=== PATIENT | female | born 1960 ===

== ENCOUNTER 2019-08-21 10:47 | Outpatient (CLI) | payer OTHER ==
[2019-08-21 11:28] LABS: CALCIUM 8.1 mg/dL (8.5-10.3); MAGNESIUM 1.9 mg/dL (1.7-2.8)
== END 2019-08-21 10:48 | disposition home or self-care (01) ==
LOC: LAB 10:47
PROVIDERS: ATTEND Internal Medicine Endocrinology, Diabetes & Metabolism
DX: E89.2 Postprocedural hypoparathyroidism (principal)
CPT/HCPCS: 36415; 82310; 83735

== ENCOUNTER 2019-09-09 13:12 | Outpatient (CLI) | payer OTHER ==
[2019-09-09 13:36] LABS: CALCIUM 8.4 mg/dL (8.5-10.3); MAGNESIUM 1.8 mg/dL (1.7-2.8)
== END 2019-09-09 13:13 | disposition home or self-care (01) ==
LOC: LAB 13:12
PROVIDERS: ATTEND Internal Medicine Endocrinology, Diabetes & Metabolism
DX: E89.2 Postprocedural hypoparathyroidism (principal)
CPT/HCPCS: 36415; 82310; 83735

== ENCOUNTER 2019-10-06 13:28 | Outpatient (CLI) | payer OTHER ==
[2019-10-06 14:04] LABS: CALCIUM 8.8 mg/dL (8.5-10.3); MAGNESIUM 1.7 mg/dL (1.7-2.8)
== END 2019-10-06 13:29 | disposition home or self-care (01) ==
LOC: LAB 13:28
PROVIDERS: ATTEND Internal Medicine Endocrinology, Diabetes & Metabolism
DX: E89.2 Postprocedural hypoparathyroidism (principal)
CPT/HCPCS: 36415; 82310; 83735

== ENCOUNTER 2020-09-07 09:15 | Outpatient (CLI) | payer OTHER ==
[2020-09-07 10:04] LABS: ALBUMIN 4.4 g/dL (3.2-5.5); ALBUMIN/GLOBULIN RATIO 1.6 (1.0-2.2); BILIRUBIN,TOTAL 0.8 mg/dL (0.2-1.0); CALCIUM 7.7 mg/dL (8.5-10.3); CREATININE 0.9 mg/dL (0.4-1.0); MAGNESIUM 1.7 mg/dL (1.7-2.8); TOTAL PROTEIN 7.2 g/dL (6.7-8.2)
[2020-09-07 10:21] LABS: THYROID STIMULATING HORMONE < 0.08 uIU/mL (0.34-5.60)
[2020-09-07 10:24] LABS: FREE T4 (FREE THYROXINE) 1.82 ng/dL (0.58-1.64)
== END 2020-09-07 09:16 | disposition home or self-care (01) ==
LOC: LAB 09:15
PROVIDERS: ATTEND Internal Medicine Endocrinology, Diabetes & Metabolism
DX: C73 Malignant neoplasm of thyroid gland (principal); E89.0 Postprocedural hypothyroidism; E89.2 Postprocedural hypoparathyroidism
CPT/HCPCS: 36415; 80048; 80053; 82306; 83735; 84432; 84439; 84443; 86800

== ENCOUNTER 2020-09-20 17:00 | Emergency (ER) | payer OTHER ==
[2020-09-20] MEDS ORDERED: AMOX/CLAV 875 MG/125 MG TABLET PO STA (17:08)
[2020-09-20] MEDS ORDERED: BACITRACIN ZINC OINT 1 PACKET TOP STA (17:08)
--- NOTE | 2020-09-20 17:10 | ED Physician Documentation ---
PD HPI UPPER EXT INJURY - Stated complaint Stated Complaint: DOG BITE - History obtained from History obtained from: Patient (Several bites from a dog just prior to arrival. Both hands are affected. She is up-to-date on tetanus.) Review of Systems Constitutional: reports: Reviewed and negative Cardiac: reports: Reviewed and negative Respiratory: reports: Reviewed and negative PD PAST MEDICAL HISTORY - Present Medications Home Medications: Ambulatory Orders Medication Instructions Recorded Confirmed Amox/Clav 875/125 [Augmentin] 1 each PO Q12H #20 tablet 09/20/20 Bacitracin Zinc Oint 1 applic TOP BID #1 tube 09/20/20 - Allergies Allergies/Adverse Reactions: Allergies Allergy/AdvReac Type Severity Reaction Status Date / Time No Known Drug Allergies Allergy Verified 09/20/20 17:10 PD ED PE NORMAL - Vitals Vital signs reviewed: Yes - General General: Alert and oriented X 3, No acute distress - Extremities Extremities: Other (see MDM, text box too small) - Neuro Neuro: Alert and oriented X 3, Normal speech - Psych Psych: Normal mood, Normal affect Results - Vitals Vitals: Vital Signs - 24 hr 09/20/20 09/20/20 17:07 17:58 Temperature 36.3 C L 37.0 C Heart Rate 98 85 Respiratory 18 16 Rate Blood Pressure 189/89 H 136/79 H O2 Saturation 99 100 Oxygen O2 Source Room air - Rads (name of study) B hand XR Radiology: EMP read contemporaneously (NAD) PD MEDICAL DECISION MAKING - ED course ED course: There are some deep scrapes in the first dorsal webspace and over the radial part of the wrist on the right. No distal neurovascular compromise. There is a puncture wound near the second left dorsal metacarpal proximally and in the first dorsal webspace of the left hand without distal neurovascular compromise. 60-year-old woman with multiple puncture wounds of both hands from dog bite. She is up-to-date on tetanus. We will start her on Augmentin, will irrigate the wounds and dressed. Nothing needs primary closure. Departure - Departure Disposition: 01 Home, Self Care Clinical Impression: Dog bite of multiple sites Condition: Good Record reviewed to determine appropriate education?: Yes Instructions: ED Bite Dog Prescriptions: Amox/Clav 875/125 [Augmentin] 1 each PO Q12H #20 tablet Bacitracin Zinc Oint 1 applic TOP BID #1 tube Comments: Can wash the wounds briefly with soap and water, then keep them covered with the antibiotic ointment and a nonstick dressing . Return for signs of infection which would include redness, swelling, drainage, increased pain. Discharge Date/Time: 09/20/20 18:15
--- NOTE | 2020-09-20 17:28 | XRAY Report ---
PROCEDURE: Hand 3 View BILAT INDICATIONS: dog bites TECHNIQUE: 3 views of the hand(s) acquired. COMPARISON: None FINDINGS: Bones: No fractures or dislocations. No suspicious bony lesions. Multifocal joint space narrowing and periarticular osteophyte formation. Soft tissues: No suspicious soft tissue calcifications. IMPRESSION: 1. Osteoarthritis. 2. No acute fracture. No osseous lesion. If symptoms and/or clinical suspicion for pathology continue , further assessment with repeat plain films, or advanced imaging (e.g., CT, MRI, or bone scan) is re commended for further assessment. Reviewed by: Marcio Ortiz MD on 09/20/2020 4:27 PM [place] Approved by: Marcio Ortiz MD on 09/20/2020 4:27 PM [facility] Station ID: [id number]
[2020-09-20 18:00] VITALS: BP 136/79
== END 2020-09-20 18:15 | disposition home or self-care (01) ==
LOC: ED 17:00
DX: S61.452A Open bite of left hand, initial encounter (principal); S61.451A Open bite of right hand, initial encounter; W54.0XXA Bitten by dog, initial encounter
CPT/HCPCS: 73130; 99283; A9270